=== PATIENT | female | born 1965 | race Caucasian/White ===

== ENCOUNTER → 2018-09-09 12:19 | Outpatient (CLI) | payer OTHER, SELFPAY ==
--- NOTE | 2018-09-09 12:23 | BI_ITS ---
MAMMOGRAPHY - BILATERAL SCREENING 3-D TOMOSYNTHESIS REASON FOR EXAM: Female, 52 years old. Bilateral Screening 3-D tomosynthesis PERTINENT HISTORY: No significant family history. TECHNIQUE: 2-D mammograms and 3-D Tomosynthesis of the breast (s) were performed. CAD was performed. COMPARISON: 2014 FINDINGS: The breast composition is composed of scattered fibroglandular density. Scattered benign calcifications are seen. No dense spiculated masses or suspicious microcalcifications are identified. No architectural distortion is identified. There is no skin thickening or retraction. There has been no significant change since the prior study. BI/SCREENING MAMM (CAD), BILAT IMPRESSION: No mammographic signs of malignancy. Routine yearly mammograms recommended. ASSESSMENT CATEGORY: BIRADS Category 2: Benign. A letter regarding these results will be sent to the patient by the facility within 30 days. FOLLOW UP RECOMMENDATION: Yearly follow up mammogram recommended. (A) Approximately 10% of breast cancers are not detected by mammography. A normal mammogram should not delay biopsy of a clinically suspicious abnormality. Electronically Signed: Erik Paredes MD at 14:49 EDT , Service support ,
== END ==
PROVIDERS: Family Provider Family Medicine; PCP Family Medicine; Referring Provider Nurse Practitioner Family; Visit Provider Nurse Practitioner Family
DX: Z12.31 Encounter for screening mammogram for malignant neoplasm of breast (principal)
CPT/HCPCS: 77063; 77067

== ENCOUNTER → 2024-04-08 | Outpatient (CLI) | payer SELFPAY ==
[2024-04-08 22:56] LABS: Cholesterol 309 mg/dL (200); High Density Lipoprotein 54 mg/dL; Triglycerides 132 mg/dL; Very Low Density Lipoprotein 26 mg/dL (5-40)
== END | disposition home or self-care (01) ==
PROVIDERS: PCP Family Medicine; Referring Provider Nurse Practitioner; Visit Provider Nurse Practitioner
DX: E78.00 Pure hypercholesterolemia, unspecified (principal)
CPT/HCPCS: 80061

== ENCOUNTER → 2024-04-29 | Outpatient (CLI) | payer SELFPAY ==
[2024-04-29 15:38] LABS: Anion Gap 4 (5-15); BUN 8 mg/dL (7-18); BUN/Creat Ratio 11.5 RATIO (10-20); Calcium,Total 9.8 mg/dL (8.5-10.1); Chloride 108 mmol/L (98-107); EST Glomerular Filtration Rate 92 mL/min (>60); Est Glom Filt Rate - Afr Amer 111 mL/min (>60); Glucose 92 mg/dL (74-106); Potassium 4.2 mmol/L (3.5-5.1); Sodium Level 140 mmol/L (136-145)
[2024-05-05 00:44] LABS: Vitamin D,25 Hydroxy 10.4 ng/mL
== END | disposition home or self-care (01) ==
PROVIDERS: Referring Provider Podiatrist; Visit Provider Podiatrist
DX: M84.374K Stress fracture, right foot, subsequent encounter for fracture with nonunion (principal)
CPT/HCPCS: 36415; 80048; 82306

== ENCOUNTER → 2024-09-09 | Outpatient (CLI) | payer SELFPAY ==
[2024-09-09 12:43] LABS: Erythrocyte Sedimentation Rate 5 mm/hr (0-30)
[2024-09-09 12:45] LABS: Absolute Neutrophil Count 4.6 X10^3/uL (2.0-7.7); Basophil# 0.07 X10^3/uL; Basophil% 0.8 % (0-1); Eosinophil# 0.53 X10^3/uL; Eosinophils% 6.3 % (0-5); Hematocrit 40.6 % (37-47); Hemoglobin 13.4 g/dL (12.0-15.0); Lymphocyte % 31.8 % (19-41); Mean Corpuscular Hgb 31.2 pg (27.0-32.0); Mean Corpuscular Volume 94.6 fL (81-99); Monocyte# 0.56 X10^3/uL; Monocyte% 6.6 % (0-10); NRBC Flagged by Analyzer 0 % (0-5); Neutrophil % 54.3 % (47-70); Platelet Count 289 K/mm3 (150-450); RBC Distribution Width CV 13.7 % (11.6-14.6); RBC Distribution Width SD 47.8 fl (35.1-43.9); Red Blood Count 4.29 M/mm3 (4.2-5.4); White Blood Count 8.5 K/mm3 (4.4-11.0)
[2024-09-09 12:55] LABS: Hemoglobin A1c 5.8 % (<=5.6)
[2024-09-09 14:05] LABS: AST(SGOT) 19 U/L (<=31); Alanine Aminotransfer ALT/SGPT 10 U/L (<=34); Albumin, Serum 3.5 g/dL (3.5-5.0); Alkaline Phosphatase 82 U/L (35-104); Anion Gap 17 (5-15); CRP < 3.00 mg/L (0.0-3.0); Calcium,Total 8.6 mg/dL (7.6-11.0); Carbon Dioxide 20.2 mmol/L (21.0-32.0); Chloride 105 mmol/L (98-108); EST Glomerular Filtration Rate 100 (>60); Glucose 52 mg/dL (70-99); Potassium 4.3 mmol/L (3.3-5.1); Sodium Level 142 mmol/L (133-145); Total Bilirubin 0.39 mg/dL (0.00-1.30); Uric Acid 3.1 mg/dL (2.6-6.0)
[2024-09-09 14:27] LABS: BUN 11 mg/dL (4-19); BUN/Creat Ratio 15.1 RATIO (10-20); Globulin 3.5 g/dL (2.2-4.2)
== END | disposition home or self-care (01) ==
PROVIDERS: Referring Provider Podiatrist; Visit Provider Podiatrist
DX: M79.671 Pain in right foot (principal); M10.9 Gout, unspecified
CPT/HCPCS: 36415; 80053; 82306; 83036; 84550; 85025; 85652; 86140

== ENCOUNTER → 2024-09-23 | Outpatient (CLI) | payer SELFPAY ==
[2024-09-23 14:05] LABS: Cholesterol 174 mg/dL (<=200); High Density Lipoprotein 47 mg/dL; Low Density Lipoprotein Calc. 109 mg/dL; Triglycerides 91 mg/dL; Very Low Density Lipoprotein 18 mg/dL (5-40)
== END | disposition home or self-care (01) ==
LOC: BIMLAB 11:39
PROVIDERS: PCP Internal Medicine; Referring Provider Internal Medicine; Visit Provider Internal Medicine
DX: E78.2 Mixed hyperlipidemia (principal)
CPT/HCPCS: 36415; 80061

== ENCOUNTER → 2025-03-27 | Outpatient (CLI) | payer SELFPAY ==
--- OUTSIDE RECORDS SUMMARY | 2025-03-27 12:30 | XMS RPT_ITS | CCD ---
Author Organization [facility] Care Team Providers Care Metal Turner Name Role Phone Care Physician, No Primary Primary Care Provider Unavailable Hossein DPMarry, Dr. Guerra Attending Provider Hossein VELAZQUEZ, Dr. Guerra Referring Provider Lety CARRENO, Dr. Maxwell Referring Provider Unavaila jennyfer Mehta MD, Dr. Fernandez Attending Provider Tyson CARRENO, Dr. Fernandez Primary Care Provider Tyson CARRENO, Dr. Fernandez Referring Provider Care Physician, No Primary Primary Care Provider Unavailable Manny GENERAL SERVICE TECHNICIAN, Lizzie Attending Unavailable Manny GENERAL SERVICE TECHNICIAN, Lizzie Referring Unavailable Hans Davidson Primary Care Unavailable Care Physician, No Primary Primary Care Unava ilable Charlie Catalan Attending Unavailable Charlie Catalan Referring Unavailable Marthae, Efewongbe Attending Unavailable Care Physician, No Primary Primary Care Unava ilable Hans Davidson Referring Unavailable Jerelghe, Efewongbe Referring Unavailable Jerelghe, Efewongbe Primary Care Unavailable Marthae, Efewongbe Attending Unavailable Care Physician, No Primary Primary Care Unava ilable Charlie Catalan Attending Unavailable Charlie Catalan Referring Unavailable Oleghe, Efewongbe Referring Unavailable Oleghe, Efewongbe Primary Care Unavailable Tyson, Efewongbe Attending Unavailable Hans Davidson Referring Unavailable Giles Kaur Attending Unavailable Hans Davidson Primary Care Unavailable Medications Current Medications Medication Drug Class(es) Dates Sig (Normalized) Sig (Original) aspirin 81 mg chewable tablet (2 sources) Platelet Aggregation Inhibitor, Nonsteroidal Anti-inflammatory Drug Start: 09-23-2024 take 1 tablet by mouth once daily Aspirin (Children's Aspirin) 81 mg tablet,chewable Active 81 mg PO daily September 23, 2024 12:00am gemfibrozil 600 mg oral tablet (1 source) Peroxisome Proliferator Receptor alpha Agonist Start: 01-09-2025 take 1 tablet by mouth twice daily Gemfibrozil 600 mg tablet Active 600 mg PO TWICE A DAY 60 January 09, 2025 12:00am lisinopril 20 mg oral tablet (4 sources) Angiotensin Converting Enzyme Inhibitor Start: 04-08-2024 End: 01-09-2025 take 1 tablet by mouth once daily Lisinopril 20 mg tablet Active 20 mg PO daily 90 January 09, 2025 11:22am mecobalamin 1 mg chewable tablet (2 sources) Start: 09-23-2024 take 1 tablet by mouth once daily Mecobalamin (Vitamin B12) 1,000 mcg tablet,chewable Active 1000 ug PO daily September 23, 2024 12:00am ubiquinol 100 mg oral capsule (2 sources) Start: 09-23-2024 take 1 capsule by mouth once daily Coq10 (Ubiquinol) (Qunol Sky Coq10) 100 mg capsule Active 100 mg PO DAILY September 23, 2024 12:00am Completed/Discontinued Medications Medication Drug Class(es) Dates Sig (Normalized) Sig (Original) atorvastatin 40 mg oral tablet (3 sources) HMG-CoA Reductase Inhibitor Start: 04-11-2024 End: 01-09-2025 take 1 tablet by mouth once daily Atorvastatin 40 mg tablet Discontinued 40 mg PO daily 30 April 11, 2024 1:00am January 09, 2025 11:07am Problems Active Problems Problem Classification Problem Date Documented Da te Episodic/Chronic Diabetes mellitus without complication (2 sources) Prediabetes; Translations: [Prediabetes] Onset: 01-09-2025 01-09-2025 Episodic Disorders of lipid metabolism (10 sources) Hypercholesterolemi a; Translations: [Pure hypercholesterolemi a, unspecified] Onset: 05-05-2024 04-11-2024 Chronic Essential hypertension (4 sources) Hypertensive disorder; Translations: [Essential (primary) hypertension] 09-23-2024 Chronic Past or Other Problems Problem Classification Problem Date Documented Da te Episodic/Chronic Fracture of lower limb (1 source) Stress fracture, right foot, subsequent encounter for fracture with nonunion; Translations: [Stress fracture, right foot, subsequent encounter for fracture with nonunion] Onset: 06-01-2024 Episodic Other connective tissue disease (1 source) Pain in right foot; Translations: [Pain in right foot] Onset: 09-17-2024 Episodic Results Test Name Value Interpretation Reference Range Facility Internal Medicine Office Vis ricardo 01-09-2025 Internal Medicine Office Visit [facility] [address] [place] [address] [place] [address] OFFICE VISIT Date of Service: 01/09/25 MR#: [id number] Acct: [id number] Name: WINDY GALLEGO Rep #: [id number] : 1965 Provider: Dr. Rebecca glover MD Age/Sex: 59/F Location: [facility] Status: Signed Intake Vital Signs 09/23/24 11:11 01/09/25 11:06 Height 5 ft 4 in 5 ft 4 in Weight: 164 lb BMI 28.1 BP 140/80 H Blood Pressure Location Lt brachial Position Sitting Respiration 18 Pulse 82 Pulse Source Monitor Temp 97.8 F Temp Source Temporal Pulse Oximetry (%) 98 Oxygen Delivery Method room air Intake Visit Reasons: 3 M FU Chief Complaint: 3 M FU Is patient in pain?: No Allergies No Known Allergies Allergy (Verified 01/09/25 11:07) Medications ???Medication ???Instructions ???Recorded ???Confirmed ???Type aspirin 81 mg chewable tablet 81 mg PO QDAY 09/23/24 01/09/25 Hi story (Children's Aspirin) coQ10 (ubiquinol) 100 mg capsule 100 mg PO DAILY 09/23/24 01/09/25 History (Qunol Sky CoQ10) mecobalamin (vitamin B12) 1,000 1,000 mcg PO QDAY 09/23/24 5 History mcg chewable tablet gemfibrozil 600 mg tablet 600 mg PO BID #60 tabs 01/09/25 Rx lisinopril 20 mg tablet 20 mg PO QDAY #90 tabs 01/09/25 Rx Have you fallen in the past year?: No PFSH Medical History (Updated 01/09/25 @ 11:[address] Rebecca Mehta MD) Borderline type 2 diabetes mellitus Health care maintenance History of uterine fibroid Hypertension Hyperlipidemia High blood cholesterol Surgical History H/O total hysterectomy History of brain surgery History of hemorrhoidectomy Family History Father Myocardial infarction Heart disease Hypertension High cholesterol CVA (cerebral vascular accident) Brother Hypertension High cholesterol Social History Smoking Status: Never smoker alcohol intake: current alcohol intake frequency: holidays/special occasions only substance use type: does not use what type of physical activity do you participate in: none seatbelt use: always do you feel safe at home: Yes HPI HPI Chief Complaint: 3 M FU Details: WINDY GALLEGO, is a 59-year-old female presenting for follow-up of her chronic conditions. She has questions about recent labs done by podiatry which came back with an A1c of 5.8. No known history of diabetes mellitus. Currently not on any medication. Additionally, the patient discontinued the use of cholesterol-lowering statins due to severe muscle cramps. She reports that any movement, such as putting on socks, triggered toe cramps in both feet, which resolved upon cessation of the medication. She expresses a preference for non-statin alternatives due to previous adverse effects. History of hypertension currently on lisinopril, and she routinely monitors her blood pressure at home, noting varying readings. She reports incidents of elevated blood pressure, particularly during clinical visits, but at home measures hover between 125 and 135 mmHg systolic, and around 82 mmHg diastolic. Attestation: Documentation on this patient encounter was supported using ambient scribe technology/ voice AI technology. The patient consented to recording for the purpose of documenting the encounter. Provider reviewed content of the generated note prior to signature. ROS Const Constitutional: No body ache, chills, excessive sweating, fatigue, fever(s), frequent falls, headache(s), snoring, weight change, sleep problems, abnormal sleep pattern or change in appetite Eyes Eyes: No blurry vision, change in vision, eye pain or Light sensitivity ENT ENT: No abnormal hearing, ear or mastoid pain, hearing loss, tinnitus, dizziness/vertigo, nasal congestion, headache(s), neck pain or sore throat Resp Respiratory: No cough, excessive phlegm production, hemoptysis, shortness of breath, snoring or wheezing Cardio Cardiology: No chest pain at rest, chest pain with exertion, excessive sweating, shortness of breath, dyspnea on exertion, lightheadedness, orthopnea or palpitations Gastro GI: No abdominal pain, change in bowel habits, constipation, cramping, diarrhea, nausea/dyspepsia or vomiting Genitourinary-Female : No burning urination, painful urination, urinary incontinence, urinary frequency, abnormal vaginal bleeding or pelvic pain Musc Musculoskeletal: No abnormal gait, joint pain, back pain, limited range of motion, neck pain, numbness or tingling Skin Skin: No dry skin, redness, lesions, itchy eyes, rash or wounds Neuro Neurology: No abnormal gait, abnormal hearing, abnormal speech, behavioral wilkins (more content not included)... Normal [facility] Calculated very low density lipoprotein (VLDL) cholesterol measurementOrdered By: Rebecca Mehta on 09-23-2024 Calculated very low density lipoprotein (VLDL) cholesterol measurement 18 mg/dL 5-40 [facility] Internal Medicine Office Vis iton 09-23-2024 Internal Medicine Office Visit [facility] [address] [place], [place] [address] OFFICE VISIT Date of Service: 09/23/24 MR#: [id number] Acct: [id number] Name: WINDY GALLEGO Rep #: [id number] : 1965 Provider: Dr. 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 Is patient in pain?: No Allergies No Known Allergies Allergy (Verified 09/23/24 11:03) Medications ???Medication ???Instructions ???Recorded ???Confirmed ???Type lisinopril 20 mg tablet 20 mg PO QDAY #90 tabs 04/08/24 Rx atorvastatin 40 mg tablet 40 mg PO QDAY #30 tabs 04/11/24 Rx aspirin 81 mg chewable tablet 81 mg PO QDAY 09/23/24 09/23/24 Hi story (Children's Aspirin) coQ10 (ubiquinol) 100 mg capsule 100 mg PO DAILY 09/23/24 09/23/24 History (Qunol Sky CoQ10) mecobalamin (vitamin B12) 1,000 1,000 mcg PO QDAY 09/23/24 5 History mcg chewable tablet Have you fallen in the past year?: No PFSH Medical History (Updated 09/23/24 @ 13:[address] Rebecca Mehta MD) Health care maintenance History of uterine fibroid Hypertension Hyperlipidemia High blood cholesterol Surgical History (Updated 09/23/24 @ 11:06 by Jennifer Boggs) H/O total hysterectomy History of brain surgery History of hemorrhoidectomy Family History (Updated 09/23/24 @ 11:07 by Jennifer Boggs) Father Myocardial infarction Heart disease Hypertension High cholesterol CVA (cerebral vascular accident) Brother Hypertension High cholesterol Social History (Updated 09/23/24 @ 11:08 by Jennifer Boggs) Smoking Status: Never smoker alcohol intake: current alcohol intake frequency: holidays/special occasions only substance use type: does not use what type of physical activity do you participate in: none seatbelt use: always do you feel safe at home: Yes HPI HPI Chief Complaint: GENERAL SERVICE TECHNICIAN-ESTABLISH CARE Details: WINDY GALLEGO, is a 58 F who presents to the office today to establish care. No acute concerns at this time. I previously followed up with Lizzie Bryant NP. History of hypertension diagnosed last year. Has been on lisinopril. Does not routinely check her blood pressure at home. She reports compliance with her medication. She states that she is active but does not exercise consistently. Also history of hyperlipidemia on Lipitor which was also started last year. No muscle pain or weakness reported. Has not had repeat testing since going on Lipitor. Also on co-Q10. Not up-to-date on her age-appropriate screening however, she states that she currently does not have insurance but plans to work towards getting insurance and then will get her screening test. ROS Const Constitutional: No body ache, chills, excessive sweating, fatigue, fever(s), frequent falls, headache(s), snoring, weakness, sleep problems or change in appetite Eyes Eyes: No blurry vision, change in vision, bulging eyes, floaters, visual disturbances or Light sensitivity ENT ENT: No abnormal hearing, ear or mastoid pain, tinnitus, balance problems, nosebleed/epistaxis, nasal congestion, nasal discharge, headache(s), neck pain or sore throat Resp Respiratory: No cough, excessive phlegm production, pain on inspiration, shortness of breath, snoring or wheezing Cardio Cardiology: No chest pain at rest, chest pain with exertion, excessive sweating, shortness of breath, dyspnea on exertion, lightheadedness, orthopnea or palpitations Gastro GI: No abdominal pain, change in bowel habits, constipation, cramping, diarrhea or nausea/dyspepsia Genitourinary-Female : No burning urination, painful urination, urinary incontinence, urinary frequency, suprapubic fullness or side pain Musc Musculoskeletal: No abnormal gait, joint pain, back pain, limited range of motion, muscle weakness, neck pain or numbness Skin Skin: No dry skin, redness, excessive hair growth, yellowing of the eye, lesions, itchy eyes, rash or wounds Neuro Neurology: No abnormal gait, abnormal hearing, behavioral changes, unsteady gait/balance, weakness, frequent falls, headache(s), memory loss, numbness or visual disturbances Psych Psychiatric: No anxiety, No behavioral changes, No change in appetite, No depression, No memory loss, No panic attacks and No Thoughts of harming yourself/Others Endo Endocrine: No cold intolerance, excessive sweating, fatigue, flushing, heat intolerance, increased (more content not included)... Normal [facility] LDL calc ser/plasOrdered By: Rebecca Mehta on 09-23-2024 Cholesterol in LDL [Mass/Vol] 109 mg/dL [facility] Comment on above: Tnctorvknj=551-729 m g/dL & Higher Iodi=861 mg/dL or greater Lipid Profileon 09-23-2024 CHOL:HDL 3.70 Normal [facility] Comment on above: Performed By: #### L 500.4100 ####[facility] [address] [place], [address] Cholesterol [Mass/Vol] 174 mg/dL Normal <=200 [facility] Comment on above: Result Comment: Chol esterol level, Desirable <200 mg/dL Borderline high cholesterol 200-239 mg/dL High cholesterol >=240 mg/dL Recommendations of the NCEP Adult Treatment Panel for the following risk-cutoff thresholds for the [place] population. Performed By: #### L 500.4100 ####[facility] [address] [place], [address] Cholesterol in HDL [Mass/Vol] 47 mg/dL Normal [facility] Comment on above: Result Comment: Fannie onal Cholesterol Education Program (NCEP) guidelines: <40 mg/dL: Low HDL-cholesterol (major risk factor for CHD) >= 60 mg/dL: High HDL-cholesterol (negative risk factor for CHD) HDL-cholesterol is affected by a number of factors, e.g. smoking, exercise, hormones, sex and age. Performed By: #### L 500.4100 ####[facility] [address] [place], [address] Cholesterol in LDL [Mass/Vol] 109 mg/dL Normal [facility] Comment on above: Result Comment: Bord qcqzom=474-635 mg/dL Higher Diha=829 mg/dL or greater Performed By: #### L 500.4100 ####[facility] [address] [place], [address] Cholesterol in VLDL [Mass/Vol] 18 mg/dL Normal 5-40 [facility] Comment on above: Performed By: #### L 500.4100 ####[facility] [address] [place], [address] Triglyceride [Mass/Vol] 91 mg/dL Normal [facility] Comment on above: Result Comment: The drugs N-Acetylcysteine and Metamizole may falsely depress this assay. Normal range: <150 mg/dL Borderline High: 150-199 mg/dL High: 200-499 mg/dL Very High: >500 mg/dL Performed By: #### L 500.4100 ####[facility] [address] [place], [address] Screening total cholesterol/ high density lipoprotein (HDL) cholesterol ratioOrdered By: Rebecca Mehta on 09-23-2024 Cholesterol.total/Choles terol in HDL [Mass ratio] 3.70 {ratio} [facility] Serum or plasma cholesterol in HDL measurement (mass/volume)Ordered By: Rebecca Mehta on 09-23-2024 Cholesterol in HDL [Mass/Vol] 47 mg/dL >40 [facility] Comment on above: National Cholesterol Education Program (NCEP) guidelines:<40 mg/dL: Low HDL-cholesterol (major risk factor for CHD)>= 60 mg/dL: High HDL-cholesterol (negative risk factor for CHD)HDL-cholesterol is affected by a number of factors, e.g. smoking, exercise, hormones, sex and age. Serum or plasma cholesterol measurement (mass/volume)Ordered By: Rebecca Mehta on 09-23-2024 Cholesterol [Mass/Vol] 174 mg/dL <201 [facility] Comment on above: Cholesterol level, D esirable <200 mg/dLBorderline high cholesterol 200-239 mg/dLHigh cholesterol >=240 mg/dLRecommendations of the NCEP Adult Treatment Panel for the following risk-cutoff thresholds for the [place] population. Triglycerides measurementOrd ered By: Rebecca Mehta on 09-23-2024 Triglyceride [Mass/Vol] 91 mg/dL <199 [facility] Comment on above: The drugs N-Acetylcy steine and Metamizole may falsely depress this assay. Normal range: <150 mg/dLBorderline High: 150-199 mg/dLHigh: 200-499 mg/dLVery High: >500 mg/dL Absolute lymphocyte countOrd ered By: Charlie Catalan on 09-09-2024 Lymphocytes Auto (Unsp spec) [#/Vol] 2.70 10*3/uL 0.83-4.51 [facility] Absolute neutrophil countOrd ered By: Charlie Catalan on 09-09-2024 Neutrophils (Bld) [#/Vol] 4.6 10*3/uL 2.0-7.7 [facility] Anion gap in Serum or Plasma Ordered By: Charlie Catalan on 09-09-2024 Anion gap [Moles/Vol] 17 mmol/L High 5- [facility] Automated lymphocyte count a s percentage of total leukocytesOrdered By: Charlie Catalan on 09-09-2024 Lymphocytes/100 WBC Auto (Unsp spec) 31.8 % [facility] BUN/creatinine ratioOrdered By: Charlie Catalan on 09-09-2024 Urea nitrogen/Creatinine [Mass ratio] 15.1 mg/mg - [facility] Basophil percentageOrdered B y: Charlie Catalan on 09-09-2024 Basophils/100 WBC (Bld) 0.8 % 0-1 [facility] Bilirubin, totalOrdered By: Charlie Catalan on 09-09-2024 Bilirubin [Mass/Vol] 0.39 mg/dL 0.00-1.30 [facility] CBC W/Diff, Automatedon 08-17 Absolute Lymph 2.70 X10 3/uL Normal 0.83-4.51 [facility] Comment on above: Performed By: #### L 101.9900, L501.6710, L501.1400, L500.4050, L506.1001, L100.0100, L501.9985 #### [facility] [address] [place], [address] Absolute Neut 4.6 X10 3/uL Normal 2.0-7.7 [facility] Comment on above: Performed By: #### L 101.9900, L501.6710, L501.1400, L500.4050, L506.1001, L100.0100, L501.9985 #### [facility] [address] [place], [address] Basophils/100 WBC (Bld) 0.8 % Normal 0-1 [facility] Comment on above: Performed By: #### L 101.9900, L501.6710, L501.1400, L500.4050, L506.1001, L100.0100, L501.9985 #### [facility] [address] [place], [address] Eosinophils/100 WBC (Bld) 6.3 % High 0-5 [facility] Comment on above: Performed By: #### L 101.9900, L501.6710, L501.1400, L500.4050, L506.1001, L100.0100, L501.9985 #### [facility] [address] [place], [address] Erythrocyte distribution width (RBC) [Ratio] 13.7 % Normal 11.6-14.6 [facility] Comment on above: Performed By: #### L 101.9900, L501.6710, L501.1400, L500.4050, L506.1001, L100.0100, L501.9985 #### [facility] [address] [place], [address] Hematocrit (Bld) [Volume fraction] 40.6 % Normal 37-47 [facility] Comment on above: Performed By: #### L 101.9900, L501.6710, L501.1400, L500.4050, L506.1001, L100.0100, L501.9985 #### [facility] [address] [place], [address] Hemoglobin (Bld) [Mass/Vol] 13.4 g/dL Normal 12.0-15.0 [facility] Comment on above: Performed By: #### L 101.9900, L501.6710, L501.1400, L500.4050, L506.1001, L100.0100, L501.9985 #### [facility] [address] [place], [address] IG% 0.200 Normal 0.0-0.9 [facility] Comment on above: Result Comment: IG% - Immature Granulocytes (promyelocytes, myelocytes and metamyelocytes) > 1% indicates that a LEFT SHIFT is Present. Performed By: #### L 101.9900, L501.6710, L501.1400, L500.4050, L506.1001, L100.0100, L501.9985 #### [facility] [address] [place], [address] Lymphocytes/100 WBC (Bld) 31.8 % Normal 19-41 [facility] Comment on above: Performed By: #### L 101.9900, L501.6710, L501.1400, L500.4050, L506.1001, L100.0100, L501.9985 #### [facility] [address] [facility] [place], [address] MCH (RBC) [Entitic mass] 31.2 pg Normal 27.0-32.0 [facility] Comment on above: Performed By: #### L 101.9900, L501.6710, L501.1400, L500.4050, L506.1001, L100.0100, L501.9985 #### [facility] [address] [place] [place], [address] MCHC (RBC) [Mass/Vol] 33.0 g/dL Normal 32-36 [facility] Comment on above: Performed By: #### L 101.9900, L501.6710, L501.1400, L500.4050, L506.1001, L100.0100, L501.9985 #### [facility] [address] [place], [address] MCV (RBC) [Entitic vol] 94.6 fL Normal 81-99 [facility] Comment on above: Performed By: #### L 101.9900, L501.6710, L501.1400, L500.4050, L506.1001, L100.0100, L501.9985 #### [facility] [address] [place], [address] Monocytes/100 WBC (Bld) 6.6 % Normal 0-10 [facility] Comment on above: Performed By: #### L 101.9900, L501.6710, L501.1400, L500.4050, L506.1001, L100.0100, L501.9985 #### [facility] [address] [place], [address] Neutrophils/100 WBC (Bld) 54.3 % Normal 47-70 [facility] Comment on above: Performed By: #### L 101.9900, L501.6710, L501.1400, L500.4050, L506.1001, L100.0100, L501.9985 #### [facility] [address] [place], [address] Nucleated RBC (Bld) [#/Vol] 0 10*3/uL Normal 0-5 [facility] Comment on above: Performed By: #### L 101.9900, L501.6710, L501.1400, L500.4050, L506.1001, L100.0100, L501.9985 #### [facility] [address] [place], [address] Platelet mean volume (Bld) [Entitic vol] 12.0 fL Normal 6.2-12.0 [facility] Comment on above: Performed By: #### L 101.9900, L501.6710, L501.1400, L500.4050, L506.1001, L100.0100, L501.9985 #### [facility] [address] [place], [address] Platelets (Bld) [#/Vol] 289 10*3/uL Normal 150-450 [facility] [facility] Comment on above: Performed By: #### L 101.9900, L501.6710, L501.1400, L500.4050, L506.1001, L100.0100, L501.9985 #### [facility] [address] [place], [address] RBC (Bld) [#/Vol] 4.29 10*6/uL Normal 4.2-5.4 [facility] Comment on above: Performed By: #### L 101.9900, L501.6710, L501.1400, L500.4050, L506.1001, L100.0100, L501.9985 #### [facility] [address] [place], [address] RDW SD 47.8 fl High 35.1-43.9 [facility] Comment on above: Performed By: #### L 101.9900, L501.6710, L501.1400, L500.4050, L506.1001, L100.0100, L501.9985 #### [facility] [address] [place], [address] WBC (Bld) [#/Vol] 8.5 10*3/uL Normal 4.4-11.0 [facility] Comment on above: Performed By: #### L 101.9900, L501.6710, L501.1400, L500.4050, L506.1001, L100.0100, L501.9985 #### [facility] [address] [place], [address] CRPon 09-09-2024 C-REACTIVE PROT < 3.00 Normal 0.0-3.0 [facility] Comment on above: Performed By: #### L 101.9900, L501.6710, L501.1400, L500.4050, L506.1001, L100.0100, L501.9985 ####[facility] [address] [place], [address] CRP [Mass/Vol]Ordered By: Eleazar Catalan on 09-09-2024 C-Reactive Protein Extended Range < 3.00 mg/L 0.0-3.0 [facility] Carbon dioxide, total [Moles /volume] in Central venous bloodOrdered By: Charlie Catalan on 09-09-2024 CO2 [Moles/Vol] 20.2 mmol/L Low 21.0-32.0 [facility] Chloride assayOrdered By: Eleazar Catalan on 09-09-2024 Chloride [Moles/Vol] 105 mmol/L 98-108 [facility] Comprehensive Metabolic Prof ilon 09-09-2024 Albumin/Globulin [Mass ratio] 1.0 {ratio} Normal 0.9-2.4 [facility] Comment on above: Performed By: #### L 101.9900, L501.6710, L501.1400, L500.4050, L506.1001, L100.0100, L501.9985 #### [facility] [address] [place], [address] BUN/CRE 15.1 RATIO Normal 10-20 [facility] Comment on above: Performed By: #### L 101.9900, L501.6710, L501.1400, L500.4050, L506.1001, L100.0100, L501.9985 #### [facility] [address] [place], [address] Globulin (S) [Mass/Vol] 3.5 g/dL Normal 2.2-4.2 [facility] Comment on above: Performed By: #### L 101.9900, L501.6710, L501.1400, L500.4050, L506.1001, L100.0100, L501.9985 #### [facility] [address] [place], [address] T PROT 7.0 g/dL Normal 5.9-8.4 [facility] Comment on above: Performed By: #### L 101.9900, L501.6710, L501.1400, L500.4050, L506.1001, L100.0100, L501.9985 #### [facility] [address] [place], [address] Urea nitrogen [Mass/Vol] 11 mg/dL Normal 4-19 [facility] Comment on above: Performed By: #### L 101.9900, L501.6710, L501.1400, L500.4050, L506.1001, L100.0100, L501.9985 #### [facility] [address] [place], [address] Eosinophil percentageOrdered By: Charlie Catalan on 09-09-2024 Eosinophils/100 WBC (Bld) 6.3 % High 0-5 [facility] Erythrocyte Sed Rateon 09-09 SED RATE 5 mm/hr Normal 0-30 [facility] Comment on above: Performed By: #### L 101.9900, L501.6710, L501.1400, L500.4050, L506.1001, L100.0100, L501.9985 #### [facility] [address] [place], [address] Erythrocyte distribution wid th (RBC) [Ratio]Ordered By: Charlie Catalan on 09-09-2024 Erythrocyte distribution width (RBC) [Entitic vol] 47.8 fL High 35.1-43.9 [facility] Erythrocyte distribution wid th ratioOrdered By: Charlie Catalan on 09-09-2024 Erythrocyte distribution width (RBC) [Ratio] 13.7 % 11.6-14.6 [facility] Erythrocyte distribution wid th standard deviationOrdered By: Charlie Catalan on 09-09-2024 Erythrocyte distribution width (RBC) [Ratio] 47.8 fl High 35.1-43.9 [facility] Erythrocyte sedimentation ra teOrdered By: Charlie Catalan on 09-09-2024 ESR (Bld) [Velocity] 5 mm/h 0-30 [facility] GFR/1.73 sq M.predicted malcolm g non-blacks MDRD (S/P/Bld) [Vol rate/Area]Ordered By: Charlie Catalan on 09-09-2024 Estimated GFR (MDRD) Non-Af Amer 100 >60 [facility] Comment on above: mL/min/1.73m2 CKD-EP I Creatinine Equation (2020) Glomerular filtration rate ( GFR) estimation/1.73 sq m using serum, plasma, or whole bOrdered By: Charlie Catalan on 09-09-2024 GFR/1.73 sq M.predicted among non-blacks MDRD (S/P/Bld) [Vol rate/Area] 100 mL/min/{1.73_m2} >60 [facility] Comment on above: mL/min/1.73m2 CKD-EP I Creatinine Equation (2020) Hematocrit Auto (Bld) [Volum e fraction]Ordered By: Charlie Catalan on 09-09-2024 Hematocrit (Bld) [Volume fraction] 40.6 % 37-47 [facility] Hemoglobin A1con 09-09-2024 HbA1c (Bld) [Mass fraction] 5.8 % High <=5.6 [facility] Comment on above: Result Comment: Norm al < 5.7 % Prediabetic 5.7 - 6.4 % Diabetic >or= 6.5 % Please note range changes. Performed By: #### L 101.9900, L501.6710, L501.1400, L500.4050, L506.1001, L100.0100, L501.9985 #### [facility] [address] [place], [place] [address] [facility] [place], [address] Hemoglobin A1c percentageOrd ered By: Charlie Catalan on 09-09-2024 HbA1c (Bld) [Mass fraction] 5.8 % High <5.7 [facility] Comment on above: Normal < 5.7 % Predi abetic 5.7 - 6.4 % Diabetic >or= 6.5 % Please note range changes. Hemoglobin measurementOrdere d By: Charlie Catalan on 09-09-2024 Hemoglobin (Bld) [Mass/Vol] 13.4 g/dL 12.0-15.0 [facility] Immature granulocytes/100 WB C Auto (Bld)Ordered By: Charlie Catalan on 09-09-2024 Immature granulocytes/100 WBC (Bld) 0.200 % 0.0-0.9 [facility] Comment on above: IG% - Immature Granu locytes (promyelocytes, myelocytes and metamyelocytes) > 1% indicates that a LEFT SHIFT is Present. Laboratory - Chemistry and C hemistry - challengeOrdered By: Charlie Catalan on 09-09-2024 AST [Catalytic activity/Vol] 19 U/L <32 [facility] Lymphocytes Auto (Unsp spec) [#/Vol]Ordered By: Charlie Catalan on 09-09-2024 Lymphocytes (Bld) [#/Vol] 2.70 10*3/uL 0.83-4.51 [facility] Lymphocytes/100 WBC Auto (Un sp spec)Ordered By: Charlie Catalan on 09-09-2024 Lymphocytes/100 WBC (Bld) 31.8 % 19-41 [facility] MCV (mean corpuscular volume ) determinationOrdered By: Charlie Catalan on 09-09-2024 MCV (RBC) [Entitic vol] 94.6 fL 81-99 [facility] Mean corpuscular hemoglobin (MCH) determinationOrdered By: Charlie Catalan on 09-09-2024 MCH (RBC) [Entitic mass] 31.2 pg 27.0-32.0 [facility] Mean corpuscular hemoglobin concentration (MCHC) determinationOrdered By: Charlie Catalan on 09-09-2024 MCHC (RBC) [Mass/Vol] 33.0 g/dL 32-36 [facility] Mean platelet volume determi nationOrdered By: hCarlie Catalan on 09-09-2024 Platelet mean volume (Bld) [Entitic vol] 12.0 fL 6.2-12.0 [facility] Monocyte percentageOrdered B y: Charlie Catalan on 09-09-2024 Monocytes/100 WBC (Bld) 6.6 % 0-10 [facility] Neutrophil percentageOrdered By: Charlie Catalan on 09-09-2024 Neutrophils/100 WBC (Bld) 54.3 % 47-70 [facility] Nucleated red blood cell per centageOrdered By: Charlie Catalan on 09-09-2024 Nucleated RBC/100 WBC (Bld) [Ratio] 0 % 0-5 [facility] Platelet countOrdered By: Eleazar Catalan on 09-09-2024 Platelets (Bld) [#/Vol] 289 10*3/uL 150-450 [facility] Potassium (Unsp spec) [Mass/ Vol]Ordered By: Charlie Catalan on 09-09-2024 Potassium [Moles/Vol] 4.3 mmol/L 3.3-5.1 [facility] Potassium measurement (mass/ volume)Ordered By: Charlie Catalan on 09-09-2024 Potassium (Unsp spec) [Mass/Vol] 4.3 mmol/L 3.3-5.1 [facility] RBC Auto (Bld) [#/Vol]Ordere d By: Charlie Catalan on 09-09-2024 RBC (Bld) [#/Vol] 4.29 10*6/uL 4.2-5.4 [facility] Serum creatinine measurement (mass/volume)Ordered By: Charlie Catalan on 09-09-2024 Creatinine [Mass/Vol] 0.70 mg/dL 0.70-1.20 [facility] Serum globulin measurementOr dered By: Charlie Catalan on 09-09-2024 Globulin (S) [Mass/Vol] 3.5 g/dL 2.2-4.2 [facility] Serum glucose measurement (m ass/volume)Ordered By: Charlie aCtalan on 09-09-2024 Glucose [Mass/Vol] 52 mg/dL Low 70-99 [facility] Serum or plasma C reactive p rotein measurement (mass/volume)Ordered By: Charlie Catalan on 09-09-2024 CRP [Mass/Vol] mg/L 0.0-3.0 [facility] Serum or plasma alanine gatica otransferase (ALT) measurementOrdered By: Charlie Catalan on 09-09-2024 ALT [Catalytic activity/Vol] 10 U/L <35 [facility] Serum or plasma albumin kimberley urement (mass/volume)Ordered By: Charlie Catalan on 09-09-2024 Albumin [Mass/Vol] 3.5 g/dL 3.5-5.0 [facility] Serum or plasma albumin/glob ulin mass ratioOrdered By: Charlie Catalan on 09-09-2024 Albumin/Globulin [Mass ratio] 1.0 {ratio} 0.9-2.4 [facility] Serum or plasma alkaline hannah sphatase measurementOrdered By: Charlie Catalan on 09-09-2024 ALP [Catalytic activity/Vol] 82 U/L 35-104 [facility] Serum or plasma calcium kimberley urement (mass/volume)Ordered By: Charlie Catalan on 09-09-2024 Calcium [Mass/Vol] 8.6 mg/dL 7.6-11.0 [facility] Serum or plasma urea nitroge n measurement (mass/volume)Ordered By: Charlie Catalan on 09-09-2024 Urea nitrogen [Mass/Vol] 11 mg/dL 4-19 [facility] Serum or plasma uric acid me asurement (mass/volume)Ordered By: Charlie Catalan on 09-09-2024 Urate [Mass/Vol] 3.1 mg/dL 2.6-6.0 [facility] Comment on above: The drugs N-Acetylcy steine and Metamizole may falsely depress this assay. Sodium levelOrdered By: Jonatan Catalan on 09-09-2024 Sodium [Moles/Vol] 142 mmol/L 133-145 [facility] Total proteinOrdered By: Tommie Catalan on 09-09-2024 Protein [Mass/Vol] 7.0 g/dL 5.9-8.4 [facility] Uric Acidon 09-09-2024 URIC 3.1 mg/dL Normal 2.6-6.0 [facility] Comment on above: Result Comment: The drugs N-Acetylcysteine and Metamizole may falsely depress this assay. Performed By: #### L 101.9900, L501.6710, L501.1400, L500.4050, L506.1001, L100.0100, L501.9985 ####[facility] [address] [place], [place], [id number] Vitamin D, 25-hydroxyOrdered By: Charlie Catalan on 09-09-2024 Vitamin D 25-Hydroxy 107.0 ng/mL High 30-100 [facility] Comment on above: Vitamin D StatusDefi ciency: <20 ng/mL (50nmol/L)Insufficiency: 20-30 ng/mL (50-75 nmol/L)Sufficiency: 30-100 ng/mL (75-250 nmol/L)Toxicity: >100 ng/mL (>250 nmol/L) Vitamin D,25 Hydroxyon 09-09 Vitamin D 25-OH 107.0 ng/mL High 30-100 [facility] Comment on above: Result Comment: Allison min D Status Deficiency: <20 ng/mL (50nmol/L) Insufficiency: 20-30 ng/mL (50-75 nmol/L) Sufficiency: 30-100 ng/mL (75-250 nmol/L) Toxicity: >100 ng/mL (>250 nmol/L) Performed By: #### L 101.9900, L501.6710, L501.1400, L500.4050, L506.1001, L100.0100, L501.9985 #### [facility] [address] [place], [place], [id number] White blood cell (WBC) count Ordered By: Charlie Catalan on 09-09-2024 WBC (Bld) [#/Vol] 8.5 10*3/uL 4.4-11.0 [facility] Vitamin D,25 Hydroxyon 05-05 Vitamin D 25-OH 10.4 ng/mL Normal [facility] Comment on above: Result Comment: Allison min D 25(OH) Status Range Deficiency <20 ng/mL (50nmol/L) Insufficiency 20 - 30 ng/mL (50 - 75 nmol/L) Sufficiency 30 - 100 ng/mL (75 - 250 nmol/L) Toxicity >100 ng/mL (>250 nmol/L) Performed By: #### L 500.2500, L506.1000 #### [facility] [address] [place], [address] Basic Metabolic Profile (BMP )on 04-29-2024 BUN/CRE 11.5 RATIO Normal 10-20 [facility] Comment on above: Performed By: #### L 500.2500, L506.1000 #### [facility] [address] [place], [address] CA,Total 9.8 mg/dL Normal 8.5-10.1 [facility] Comment on above: Performed By: #### L 500.2500, L506.1000 #### [facility] [address] [place], [address] Chloride [Moles/Vol] 108 mmol/L High 98-107 [facility] Comment on above: Performed By: #### L 500.2500, L506.1000 #### [facility] [address] [place], [address] CO2 [Moles/Vol] 27.0 mmol/L Normal 21.0-32.0 [facility] Comment on above: Performed By: #### L 500.2500, L506.1000 #### [facility] [address] [place], [address] Creatinine [Mass/Vol] 0.70 mg/dL Normal 0.55-1.02 [facility] Comment on above: Result Comment: The validity of the calculated GFR GFRAA in patients over 70 years has not been determined. Clinical correlation is essential. Performed By: #### L 500.2500, L506.1000 #### [facility] [address] [place], [address] EST GFR - AA 111 mL/min Normal >60 [facility] Comment on above: Result Comment: Afri can Bahamian GFR Calc Performed By: #### L 500.2500, L506.1000 #### [facility] [address] [place], [address] GAP 4 Low 5-15 [facility] Comment on above: Performed By: #### L 500.2500, L506.1000 #### [facility] [address] [place], [address] GFR/1.73 sq M.predicted among non-blacks MDRD (S/P/Bld) [Vol rate/Area] 92 mL/min/{1.73_m2} Normal >60 [facility] Comment on above: Result Comment: Non- GFR Calc Performed By: #### L 500.2500, L506.1000 #### [facility] [address] [place], [address] Glucose [Mass/Vol] 92 mg/dL Normal 74-106 [facility] Comment on above: Performed By: #### L 500.2500, L506.1000 #### [facility] [address] [place], [address] Potassium [Moles/Vol] 4.2 mmol/L Normal 3.5-5.1 [facility] Comment on above: Performed By: #### L 500.2500, L506.1000 #### [facility] [address] [place], [address] Sodium [Moles/Vol] 140 mmol/L Normal 136-145 [facility] Comment on above: Performed By: #### L 500.2500, L506.1000 #### [facility] [address] [place], [address] Urea nitrogen [Mass/Vol] 8 mg/dL Normal 7-18 [facility] Comment on above: Performed By: #### L 500.2500, L506.1000 #### [facility] [address] [place], [address] Lipid Profileon 04-08-2024 Cholesterol [Mass/Vol] 309 mg/dL High 200 [facility] Comment on above: Result Comment: <200 mg/dL Desirable 200-240 mg/dL Borderline >240 mg/dL High Risk Performed By: #### L 500.4100 #### [facility] [address] [place], [address] Cholesterol in HDL [Mass/Vol] 54 mg/dL Normal [facility] Comment on above: Result Comment: The drugs N-Acetylcysteine and Metamizole may falsely depress this assay. Reference Range HDL <40 mg/dL Low HDL Cholesterol HDL >or= 60 mg/dL High HDL Cholesterol Performed By: #### L 500.4100 #### [facility] [address] [place], [address] Cholesterol in LDL [Mass/Vol] 229 mg/dL High 0-130 [facility] Comment on above: Performed By: #### L 500.4100 #### [facility] [address] [place], [address] Cholesterol in VLDL [Mass/Vol] 26 mg/dL Normal 5-40 [facility] Comment on above: Performed By: #### L 500.4100 #### [facility] [address] [place], [address] Triglyceride [Mass/Vol] 132 mg/dL Normal [facility] Comment on above: Result Comment: The drugs N-Acetylcysteine and Metamizole may falsely depress this assay. Serum Triglycerides Reference Interval Normal <150 mg/dL Borderline high 150 - 199 mg/dL High 200 - 499 mg/dL Very High > or = 500 mg/dL Performed By: #### L 500.4100 #### [facility] [address] [place], [address] [facility]IED [facility]on 04-04-2024 [facility] HNO ID: [id number] Author: LISA SERNA CT Service: Radiology Author Type: Technologist Type: Allied Health Filed: 04/04/2024 10:43 Note Text: Radiology Service Progress Note PATIENT NAME: Windy Gallego DATE OF SERVICE: April 04, 2024 TIME: 10:43 AM PATIENT IDENTITY VERIFICATION COMPLETED USING TWO (2) IDENTIFIERS: Name and Date of confirmed by patient verbally and Name and Date of confirmed by identification band. FALL SCREENING: Has the patient had 2 falls in the last year or 1 fall with injury or currently using an Ambulatory Assistive Device (Walker, Cane, Wheelchair, Crutches, etc.)? No PATIENT GENDER DATA: Female. status: : No status: NO. PATIENT RELEVANT IMPLANT DATA REVIEWED: Not Applicable PATIENT PRESENTS WITH AN IMPLANTABLE OR ATTACHED SNUBBER: No RADIOLOGY DEPARTMENT: Ultrasound PERIPHERAL IV DATA: Not applicable SIGNED BY: VLADIMIR Stack April 04, 2024 10:43 AM [facility] HNO ID: [id number] Author: DMITRY PELAEZ RT(R) Service: Radiology Author Type: Technologist Type: Allied Health Filed: 04/04/2024 09:38 Note Text: Radiology Service Progress Note PATIENT NAME: Windy Gallego DATE OF SERVICE: April 04, 2024 TIME: 9:37 AM PATIENT IDENTITY VERIFICATION COMPLETED USING TWO (2) IDENTIFIERS: Name and Date of confirmed by patient verbally. FALL SCREENING: Has the patient had 2 falls in the last year or 1 fall with injury or currently using an Ambulatory Assistive Device (Walker, Cane, Wheelchair, Crutches, etc.)? Emergency Room Patient: Screened in ED PATIENT GENDER DATA: Female. status: : No status: NO. PATIENT RELEVANT IMPLANT DATA REVIEWED: Not Applicable PATIENT PRESENTS WITH AN IMPLANTABLE OR ATTACHED SNUBBER: No RADIOLOGY DEPARTMENT: General X-ray: Exam(s) Completed: Lower Extremity X-Ray(s): Knee, AP / LAT Left PERIPHERAL IV DATA: Not applicable SIGNED BY: RT Wilfredo(R) April 04, 2024 9:37 AM [facility] ED NOTEon 04-04-2024 ED NOTE HNO ID: [id number] Author: RICK AMIN RN Service: ? Author Type: Registered Nurse Type: ED Notes Filed: 04/04/2024 11:06 Note Text: Discharge instructions d/w pt at bedside. Stated understanding with no further questions for this nurse. Encouraged f/u with PCP and referring doctors given. Stated understanding. Prescription(S) were given X0. [facility] ED NOTE HNO ID: [id number] Author: RICK AMIN RN Service: ? Author Type: Registered Nurse Type: ED Notes Filed: 04/04/2024 10:52 Note Text: Ana HARDIN back in at bedside with update and to discuss plan of care. Advised pt and family of results in ED, they agree and verbalize understanding. [facility] ED PROV NOTEon 04-04-2024 ED PROV NOTE HNO ID: [id number] Author: ANA GARNER PA-C Service: ? Author Type: Physician Conference Assistant Type: ED Provider Notes Filed: 04/04/2024 12:03 Note Text: ED Provider Note Patient Name: Windy Gallego : 1965 SERVICE DATE: 04/04/24 History Patient presents with: Knee Pain: Pt presents to ED with c/o L knee pain. She states that it started this morning around 0300 and has not let up since. She presents wearing a walking boot on the R foot and states she believes it could be from how she has been walking, but that her doctor told her that if she did not stretch then she could develop a blood clot. Pt denies any sob or chest pain 58-year-old female recently diagnosed with Lanter fasciitis and stress fracture in the right foot with a walking boot on presents to ED complaining of left knee pain. Pain started yesterday but was worse this morning when she woke up and tried to sit. Pain is most severe when she goes to change position and put weight on the leg. No known injury. History provided by: Medical records and patient PAST MEDICAL HISTORY Diagnosis Date PMH - PAST MEDICAL HISTORY OF stage 4 endometriosis PMH - PAST MEDICAL HISTORY OF brain tumor PMH - PAST MEDICAL HISTORY OF fibroid tumor Unspecified hemorrhoids without mention of complication Internal PAST SURGICAL HISTORY Procedure Laterality Date DELIVERY ONLY 2001 , low cervical twins HYSTERECTOMY 03/28/2011 completed at [facility], Complete Hysterectomy PAST SURGICAL HISTORY OF 1991 Hemorrhoid PAST SURGICAL HISTORY OF 1998 Uterine suspension PAST SURGICAL HISTORY OF 1996 fibroid tumor benign PAST SURGICAL HISTORY OF 1999 brain tumor benign (meningioma, posterior fossa) FAMILY HISTORY Problem Relation Age of Onset None Mother Heart Father HTN, increased choles Hypertension Father Hypertension Brother Hypertension Brother None Brother None Brother None Brother Diabetes Paternal Uncle Hypertension Paternal Uncle Ischemic Heart Disease Paternal Uncle different uncle from DM and HTN Social History Tobacco Use Smoking status: Never Smokeless tobacco: Never Substance and Sexual Activity Alcohol use: No Drug use: Never Sexual activity: Not on file ALLERGIES Allergen Reactions Erythromycin GI Upset Review of Systems Respiratory: Negative. Cardiovascular: Negative. Musculoskeletal: Positive for arthralgias. Skin: Negative. Neurological: Negative. Physical Exam Vitals [04/04/24 0811] BP Pulse Temp Temp src Resp SpO2 Weight Height 177/92 84 36.6 ?C (97.9 ?F) Oral 22 96 % 74.8 kg (165 lb) -- Physical Exam Vitals and nursing note reviewed. Constitutional: Appearance: Normal appearance. HENT: Head: Normocephalic and atraumatic. Cardiovascular: Rate and Rhythm: Normal rate. Pulses: Normal pulses. Pulmonary: Effort: Pulmonary effort is normal. Musculoskeletal: Comments: Left knee is tender to the lateral aspect. Pain with flexion but range of motion intact. No joint laxity, negative varus and valgus testing. No calf tenderness Skin: General: Skin is warm and dry. Capillary Refill: Capillary refill takes less than 2 seconds. Neurological: Mental Status: She is alert and oriented to person, place, and time. Sensory: No sensory deficit. Gait: Gait normal. Diagnostic Testing ED Labs Ordered and Reviewed - No data to display XR KNEE LIMITED 2V AP/LAT LEFT Final Result IMPRESSION: No acute bony abnormality. Master Plumber: PAVITHRA Transcribe Date/Time: Apr 04 2024 9:41A Dictated by : Torres PATINO MD This examination was interpreted and the report reviewed and electronically signed by: Torres PATINO MD on Apr 04 2024 9:43AM EST Procedures ED Course / Clinical Impression Clinical Impressions as of 04/04/24 1202 Knee strain Acute pain of left knee MDM / Disposition / Plan 58-year-old female presents ED complaining of left knee pain. Left knee pain for the past 2 days with no known injury. Tender laterally, pain with flexion. Neurovascular intact. X-ray shows no bony abnormality. Ultrasound obtained due to limited movement with the right foot in a boot, negative for DVT. Discussed with pt. Possible strain, knee brace given. Continue rice and supportive care and follow up with orthopedics. Safe for discharge home. Differential Diagnoses - Knee pain - Fracture is less likely for the following reason(s): no evidence on imaging - DVT is less likely for the following reason(s): no evidence on imaging Management I performed an independent interpretation of the following:imaging Imaging: My interpretation is No displaced fracture seen on x-ray Re-evaluation vital signs in acceptable range Ana Garner PA-C Disposition The patient was discharged. Counseled patient regarding radiology results and suspected diagnosis. SIGNATURE: Ana Garner PA-C - ALISSA ANA Tuttle 04/04/24 1203 Normal [facility] US DVT LOWER LTon 04-04-2024 US DVT LOWER LT * * *Final Report* * * DATE OF EXAM: Apr 04 2024 10:41AM MDU 1006 - US DVT LOWER LT / PROCEDURE REASON: Leg pain or tenderness * * * * Physician Interpretation * * * * EXAMINATION: LEFT LOWER EXTREMITY DEEP VENOUS ULTRASOUND WITH DOPPLER IMAGING CLINICAL HISTORY: Leg pain or tenderness. TECHNIQUE: Grayscale with compression maneuvers, color Doppler and spectral Doppler imaging of the left proximal deep veins was performed. Grayscale with compression maneuvers of the peroneal and posterior tibial veins was performed. The left great and small saphenous veins were evaluated at their insertion to the deep system. The contralateral common femoral vein was imaged for comparison. Images were obtained and stored in a permanent archive. MQ: [id number] COMPARISON: None RESULT: LEFT LOWER EXTREMITY PROXIMAL DEEP VEINS Distal External Iliac, Common Femoral and proximal Profunda Veins: Compression: Normal Doppler: Normal, spontaneous respirophasic flow. Normal response to augmentation. Femoral vein: Compression: Normal Doppler: Normal, spontaneous flow. Normal response to augmentation. Popliteal vein: Compression: Normal Doppler: Normal, spontaneous flow. Normal response to augmentation. CALF DEEP VEINS Peroneal veins: Normal compression. Posterior tibial veins: Normal compression. Gastrocnemius and Soleal veins: Not imaged. SUPERFICIAL VEINS Great saphenous: Patent and compressible at insertion into common femoral vein; not otherwise assessed. Small Saphenous: Patent and compressible in the proximal calf, not otherwise assessed. RIGHT LOWER EXTREMITY (FOR COMPARISON) Common Femoral Vein: Compression: Normal Doppler: Normal, spontaneous respirophasic flow. Normal response to augmentation. IMPRESSION: Negative study for proximal DVT in the left lower extremity. Negative study for calf DVT in the left lower extremity. Negative study for superficial thrombophlebitis in the imaged segments of the left lower extremity. Master Plumber: PAVITHRA Transcribe Date/Time: Apr 04 2024 10:43A Dictated by : RACIEL DICKINSON MD This examination was interpreted and the report reviewed and electronically signed by: RACIEL DICKINSON MD on Apr 04 2024 10:45AM EST [id number] [facility] XR KNEE 2V AP/LAT LTon 04-04 XR KNEE 2V AP/LAT LT * * *Final Report* * * DATE OF EXAM: Apr 04 2024 9:36AM MDX 5206 - XR KNEE 2V AP/LAT LT / PROCEDURE REASON: Trauma * * * * Physician Interpretation * * * * EXAM: XR KNEE 2V AP/LAT LT HISTORY: Left knee pain, denies injury VIEWS: AP and lateral COMPARISON: No relevant prior study available FINDINGS: No dislocation, osteolysis or acute fracture. The joint spaces appear maintained. No joint effusion. IMPRESSION: No acute bony abnormality. Master Plumber: [email or web address] Transcribe Date/Time: Apr 04 2024 9:41A Dictated by : Torres PATINO MD This examination was interpreted and the report reviewed and electronically signed by: Torres PATINO MD on Apr 04 2024 9:43AM EST [id number] [facility] Vital Signs Date Time Vital Sign Value Performing Clinician Rodrigo bell 01-09-2025 11:06-0400 Body height 162.[address] Hans Davidson MD [facility] 01-09-2025 11:06-0400 Body mass index (BMI) [Ratio] 28.1 kg/m2 Dr. Hans Davidson MD [facility] 01-09-2025 11:06-0400 Body temperature 97.8 [degF] Dr. Hans Davidson MD [facility] 01-09-2025 11:06-0400 Body weight 74.[address] Hans Davidson MD [facility] 01-09-2025 11:06-0400 Diastolic blood pressure 80 mm[Hg] Dr. Hans Davidson MD [facility] 01-09-2025 11:06-0400 Heart rate 82 /min Dr. Hans Davidson MD [facility] 01-09-2025 11:06-0400 Respiratory rate 18 /min Dr. Hans Davidson MD [facility] 01-09-2025 11:06-0400 SaO2% (BldA) [Mass fraction] 98 % Dr. Hans Davidson MD [facility] 01-09-2025 11:06-0400 Systolic blood pressure 140 mm[Hg] Dr. Hans Davidson MD [facility] 09-23-2024 11:11-0400 Body height 162.56 cm No Primary Care Physician [facility] 09-23-2024 11:11-0400 Body mass index (BMI) [Ratio] 29 kg/m2 No Primary Care Physician [facility] 09-23-2024 11:11-0400 Body temperature 98.9 [degF] No Primary Care Physician [facility] 09-23-2024 11:11-0400 Body weight 76.65 kg No Primary Care Physician [facility] 09-23-2024 11:11-0400 Diastolic blood pressure 92 mm[Hg] No Primary Care Physician [facility] 09-23-2024 11:11-0400 Heart rate 87 /min No Primary Care Physician [facility] 09-23-2024 11:11-0400 Respiratory rate 16 /min No Primary Care Physician [facility] 09-23-2024 11:11-0400 SaO2% (BldA) [Mass fraction] 95 % No Primary Care Physician [facility] 09-23-2024 11:11-0400 Systolic blood pressure 138 mm[Hg] No Primary Care Physician [facility] Encounters Encounter Date Encounter Type Care Provider Facility Start: 01-09-2025 End: 01-09-[address] Rebecca Mehta MD -[facility] Work Phone: Start: 01-09-2025 End: 01-09-[address] Hans [facility] Start: 09-23-2024 Patient encounter status No Primary Care Physician [facility] Comment on above: Not up-to-date but p lans to after she gets on insurance. Start: 09-23-2024 End: 09-23-[address] Rebecca Mehta MD -[facility] Work Phone: Start: 09-23-2024 End: 09-23-[address] Rebecca Mehta MD [facility] Start: 09-23-2024 End: 09-23-2024 ambulatory No Primary Care Physician [facility] Work Phone: Start: 09-23-2024 End: 09-23-2024 ambulatory Rebecca Mehta Facility:[facility] Start: 09-09-2024 End: 09-09-2024 ambulatory No Primary Care Physician [facility] Work Phone: Start: 09-09-2024 End: 09-09-[address] Charlie Catalan DPM -Laboratory, [place] Work Phone: Start: 09-09-2024 End: 09-09-2024 ambulatory No Primary Care Physician Facility:[facility] Start: 04-29-2024 End: 04-29-2024 ambulatory No Primary Care Physician Facility:[facility] Start: 04-22-2024 ambulatory Hans Davidson Facility:[facility] Start: 04-08-2024 End: 04-08-2024 ambulatory Lizzie Bryant GENERAL SERVICE TECHNICIAN Facility:[facility] Procedures Date Procedure Procedure Detail Performing Clinician Start: 09-09-2024 Vitamin D, 25-hydrox y measurement No Primary Care Physician Comment on above: Vitamin D StatusDefi ciency: <20 ng/mL (50nmol/L)Insufficiency: 20-30 ng/mL (50-75 nmol/L)Sufficiency: 30-100 ng/mL (75-250 nmol/L)Toxicity: >100 ng/mL (>250 nmol/L) Plan of Treatment Date Care Activity Detail Author Comprehensive metabo lic 2000 panel - Serum or Plasma [facility] Hemoglobin A1c/Hemoglobin.total in Blood [facility] Payers Date Payer Category Payer Self-pay 2024 Unknown [id number] Unknown [id number] [id number] [id number] Unknown [id number] 2.16.8 [id number] Unknown [id number] 2.16.8 [id number] Unknown [id number] 2.16.8 [id number] Unknown [id number] 2.16.8 [id number] Unknown [id number] 2.16.8 [id number] Unknown [id number] 2.16.8 [id number] Social History Date Type Detail Facility Tobacco smoking stat [facility] Unknown if ever smoked [facility] Work Phone: Start: 09-13-2024 Sex Female (finding) [facility] Start: 1965 Sex Assigned At Female [facility] Start: 09-23-2024 [facility] Evaluation note 09-23-2024 Note Date & Type Note Facility 09-23-2024 Evaluation note Diagnosis Onset Date Resolution Health care maintenance acute M ay 2024 10:45am Hyperlipidemia chronic September 23, 2 025 10:45am Hypertension chronic September 23 10:45am [facility] Work Phone: Clinical Note 12-07-2020 Note Date & Type Note Facility 12-07-2020 Note Patient Outreach (IN [facility]) WINDY GALLEGO ([id number]) 1965 F Date Time Provider Department 12/07/20 PATRICIA ROTH During your visit today, we recorded the following information about you: Allergies As of Date: 12/07/2020 Noted Allergy Reaction ERYTHROMYCIN 08/07/2008 8 - GI Upset Date Reviewed: 08/12/2018 Reviewed by: Armando ([facility]) Dell - Fully Assessed Visit Diagnosis:Encounter for screening mammogram for breast cancer [Z12.31] Order(s):MARY SCREENING [[id number]] Order #: [id number] FUTURE Prescriptions as of 12/10/2020 - cyclobenzaprine (FLEXERIL) 10 mg tablet Take 1 tablet by mouth three times daily as needed for Muscle Spasm. 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 Author Type: ? Type: Progress Notes Filed: 09/28/2020 3:23 PM Note Text: POPULATION HEALTH NAVIGATION OUTREACH Action/FYI Unable to reach patient Contact made with patient or family member? NO Pt identified by name and : NO Outreach Outcome/Action Unable to reach patient Reason for Outreach Care Gap or Scheduling/Wellness visits Payer: Payor: [employer] / Plan: [employer] SUPPLEMENT / Product Type: Indemnity / Care Gap Reviewed:: Breast Cancer screening Reminder: Reminder note to check Health Maintenance for items below Health Maintenance items due: HEPATITIS C SCREENING Never done HIV SCREENING Never done DTAP,TDAP,TD(1 - Tdap) Never done PAP TESTING Never done HPV TESTING Never done DIABETES SCREEN due on 02/16/2012 LIPID SCREEN due on 02/15/2014 COLORECTAL CANCER SCREENING Never done SHINGRIX VACCINE(1 of 2) Never done DEPRESSION SCREENING due on 08/13/2019 MAMMOGRAM due on 09/10/2019 Referrals: N/A Message Sent to Practice: NO Navigation Signature: Jie Jarrett September 28, 2020 3:21 PM [facility] Clinical Note 09-28-2020 Note Date & Type Note Facility 09-28-2020 Note Patient Outreach ([facility]) JULIÁNWINDY Mary Carmen ([id number]) 1965 F Date Time Provider Department 09/28/20 JIE [facility] [facility] During your visit today, we recorded the following information about you: Jie Pemberton [facility] 09/28/2020 3:23 PM Signed POPULATION HEALTH NAVIGATION OUTREACH Action/FYI Unable to reach patient Contact made with patient or family member? NO Pt identified by name and : NO Outreach Outcome/Action Unable to reach patient Reason for Outreach Care Gap or Scheduling/Wellness visits Payer: Payor: [employer] / Plan: [employer] SUPPLEMENT / Product Type: Indemnity / Care Gap Reviewed:: Breast Cancer screening Reminder: Reminder note to check Health Maintenance for items below Health Maintenance items due: HEPATITIS C SCREENING Never done HIV SCREENING Never done DTAP,TDAP,TD(1 - Tdap) Never done PAP TESTING Never done HPV TESTING Never done DIABETES SCREEN due on 02/16/2012 LIPID SCREEN due on 02/15/2014 COLORECTAL CANCER SCREENING Never done SHINGRIX VACCINE(1 of 2) Never done DEPRESSION SCREENING due on 08/13/2019 MAMMOGRAM due on 09/10/2019 Referrals: N/A Message Sent to Practice: NO Navigation Signature: Jie Pemberton [facility] September 28, 2020 3:21 PM Allergies As of Date: 09/28/2020 Noted Allergy Reaction ERYTHROMYCIN 08/07/2008 8 - GI Upset Date Reviewed: 08/12/2018 Reviewed by: Armando ([facility]) Dell - Fully Assessed Reason for Visit: Population Health Navigation Outreach [3910] Cmt: deferred care Prescriptions as of 09/28/2020 Sig: CYCLOBENZAPRINE 10 MG TABLET Take 1 tablet by mouth three * Problem List As Of Date 09/28/2020 Noted Resolved 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] 08/03/2008 DERMATOPHYTOSIS OF NAIL [B35.1] 08/03/2008 ROUTINE PROGRAM DIRECTOR SCOUTING EXAMINATION [Z01.419] 08/07/2008 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] 08/07/2008 Encounter Status:Closed by JIE GUERRERO on 09/28/20 [facility] Evaluation note Note Date & Type Note Facility Evaluation note No assessment information availa ble [facility] Work Phone: Reason for referral (narrative) Note Date & Type Note Facility Reason for referral (narrative) No reason for referral information available [facility] Work Phone: Summary Purpose Family History No Family History Records Found Relationship Condition Age at Onset Recorded Date/T mary kay father Myocardial infarction Unknown Cardiac disease Unknown Hypertension Unknown High blood cholesterol Unknown Cerebrovascular accident (CVA) Unknown brother Hypertension Unknown Advance Directives No Advanced Directives Records FoundNo Advanced Directives Records FoundNo Advanced Directives Records Found Chief Complaint and Reason for Visit Chief Complaint Admit Date GENERAL SERVICE TECHNICIAN EST CARE PPW GIVEN September 23, 2024 10:4 5am 3 M FU January 09, 2025 10 :40am Reason for Visit Admit Date Health care maintenance September 23, 2024 10 :45am Hyperlipidemia September 23, 2024 10:45a m Hypertension September 23, 2024 10:45a m Chief Complaint Admit Date RIGHT FOOT PAIN/ GOUT September 09, 2024 1 0:22am Chief Complaint Admit Date RIGHT FOOT PAIN/ GOUT September 09, 2024 1 0:22am GENERAL SERVICE TECHNICIAN EST CARE PPW GIVEN September 23, 2024 10:4 5am Additional Source Comments INFORMATION SOURCE (unrecogn ized section and content) DATE CREATED AUTHOR 06/25/2021 [facility] DATE CREATED AUTHOR AUTHOR'S ORGANIZ ATION 04/05/2024 [facility] DATE CREATED AUTHOR AUTHOR'S ORGANIZ ATION 01/10/2025 [facility] Care Teams (unrecognized sec tion and content) Team Status: Active Member Role Status Dates Dr. Hans Davidson MD Family Provider Active No Primary Care Physician Primary Care Provider Active Team Status: Inactive Member Role Status Dates No Primary Care Physician Primary Care Provider Active Start: September 09, 2024 End: September 09, 2024 Dr. Charlie Catalan DPM Attending Provider Active Start: September 09, 2024 End: September 09, 2024 Dr. Charile Catalan DPM Referring Provider Active Start: September 09, 2024 End: September 09, 2024 Team Status: Active Member Role Status Dates Dr. Rebecca Mehta MD Primary Care Provider Active Team Status: Inactive Member Role Status Dates Dr. Hans Davidson MD Referring Provider Active Start: September 23, 2024 End: September 23, 2024 Dr. Rebecca Mehta MD Attending Provider Active Start: September 23, 2024 End: September 23, 2024 No Primary Care Physician Primary Care Provider Active Start: September 23, 2024 End: September 23, 2024 Team Status: Inactive Member Role Status Dates Dr. Rebecca Mehta MD Primary Care Provider Active Start: September 23, 2024 End: September 23, 2024 Dr. Rebecca Mehta MD Attending Provider Active Start: September 23, 2024 End: September 23, 2024 Dr. Rebecca Mehta MD Referring Provider Active Start: September 23, 2024 End: September 23, 2024 Team Status: Active Member Role/Relationship Status Dates Dr. Rebecca Mehta MD Primary Care Provider Active Team Status: Inactive Member Role/Relationship Status Dates Dr. Hans Davidson MD Referring Provider Active Start: September 23, 2024 End: September 23, 2024 Dr. Rebecca Mehta MD Attending Provider Active Start: September 23, 2024 End: September 23, 2024 No Primary Care Physician Primary Care Provider Active Start: September 23, 2024 End: September 23, 2024 Team Status: Inactive Member Role/Relationship Status Dates Dr. Rebecca Mehta MD Primary Care Provider Active Start: September 23, 2024 End: September 23, 2024 Dr. Rebecca Mehta MD Attending Provider Active Start: September 23, 2024 End: September 23, 2024 Dr. Rebecca Mehta MD Referring Provider Active Start: September 23, 2024 End: September 23, 2024 Team Status: Inactive Member Role/Relationship Status Dates Dr. Rebecca Mehta MD Primary Care Provider Active Start: January 09, 2025 End: January 09, 2025 Dr. Rebecca Mehta MD Attending Provider Active Start: January 09, 2025 End: January 09, 2025 Dr. Rebecca Mehta MD Referring Provider Active Start: January 09, 2025 End: January 09, 2025 Goals (unrecognized section and content) Goals may be documented in a n alternate sectionGoals may be documented in an alternate sectionGoals may be documented in an alternate section FOR RECORDS PERTAINING TO PATIENTS WHO ARE OR HAVE BEEN ENROLLED IN A CHEMICAL DEPENDENCY/SUBSTANCEABUSE PROGRAM, SOME INFORMATION MAY BE OMITTED. This clinical summary was aggregated from multiple sources. Caution should be exercised in using it in the provision of clinical care. This summary normalizes information from multiple sources, and as a consequence, information in this document may materially change the coding, format and clinical context of patient data. In addition, data may be omitted in some cases. CLINICAL DECISIONS SHOULD BE BASED ON THE PRIMARY CLINICAL RECORDS. [facility] [employer] provides no warranty or guarantee of the accuracy or completeness of information in this document.
[2025-03-27 15:39] LABS: AST(SGOT) 17 U/L (<=31); Alanine Aminotransfer ALT/SGPT 9 U/L (<=34); Albumin, Serum 4.3 g/dL (3.5-5.0); Alkaline Phosphatase 87 U/L (35-104); Anion Gap 12 (5-15); BUN 8 mg/dL (4-19); BUN/Creat Ratio 9.5 RATIO (10-20); Calcium,Total 9.9 mg/dL (7.6-11.0); Carbon Dioxide 24.5 mmol/L (21.0-32.0); Chloride 105 mmol/L (98-108); Cholesterol 258 mg/dL (<=200); Globulin 2.8 g/dL (2.2-4.2); Glucose 76 mg/dL (70-99); Low Density Lipoprotein Calc. 188 mg/dL; Potassium 4.1 mmol/L (3.3-5.1); Triglycerides 70 mg/dL; Very Low Density Lipoprotein 14 mg/dL (5-40); cholesterol:hdl ratio screen 4.40
== END | disposition home or self-care (01) ==
PROVIDERS: PCP Internal Medicine; Referring Provider Internal Medicine; Visit Provider Internal Medicine
DX: E78.2 Mixed hyperlipidemia (principal); R73.03 Prediabetes
CPT/HCPCS: 36415; 80053; 80061; 83036